=== PATIENT | male | born 1960 | race Caucasian/White ===

== ENCOUNTER 2020-10-06 23:33 | Inpatient (IN) | payer SELFPAY ==
[~2020-10-06] VITALS: Ht 186.7 cm; Wt 99.8 kg
--- NOTE | 2020-10-06 23:45 | NUR ---
PT BIBS WITH C/O NOSEBLEED X2HRS [employer]. PT DENIES TAKING ANY BLOOD THINNERS. PT ALERT AND ORIENTED X4. AMBULATORY WITH NON LABORED BREATHING.
[2020-10-07] VITALS (25 sets, daily range): BP systolic 127–193; BP diastolic 83–124
--- NOTE | 2020-10-07 | NUR ---
BLOOD WORK COLLECTED AND SENT TO LAB.
[2020-10-07] MEDS ORDERED: hydrALAZINE HCL IV 20 MG VIAL ONE ×2 (00:06→01:01)
[2020-10-07 00:09] LABS: BASOPHILS # (AUTO) 0.1 K/uL (0.0-0.2); EOSINOPHILS % (AUTO) 3.1 % (0.0-6.0); HEMATOCRIT 43 % (39-51); HEMOGLOBIN 15.1 g/dL (13.5-17.5); LYMPHOCYTES # (AUTO) 2.4 K/uL (0.8-4.8); MEAN CORPUSCULAR HGB CONC 35 g/dl (31.0-36.0); MEAN CORPUSCULAR VOLUME 99 fL (80-96); MONOCYTES # (AUTO) 0.9 K/uL (0.1-1.30); MONOCYTES % (AUTO) 8.9 % (2.0-12.0); NEUTROPHILS # (AUTO) 6.2 K/uL (1.8-8.9); PLATELET COUNT (AUTO) 325 K/uL (150-450); RED BLOOD CELL COUNT(AUTO) 4.37 MIL/uL (4.5-6.0); WHITE BLOOD COUNT (AUTO) 9.9 K/uL (4.3-11.0)
--- NOTE | 2020-10-07 00:26 | NUR ---
PT TAKEN TO CT.
[2020-10-07 00:34] LABS: ALANINE AMINOTRANSFERASE 38 U/L (12-78); ALBUMIN 3.6 g/dL (3.4-5.0); ALKALINE PHOSPHATASE 45 U/L (46-116); ASPARTATE AMINOTRANSFERASE 31 U/L (15-37); BILIRUBIN,DIRECT 0.1 mg/dL (0.0-0.2); BILIRUBIN,TOTAL 0.5 mg/dL (0.2-1.0); CALCIUM, SERUM 8.8 mg/dL (8.5-10.1); CARBON DIOXIDE 28 mmol/L (21-32); CHLORIDE 102 mmol/L (98-107); CREATININE 0.9 mg/dL (0.6-1.3); GLUCOSE 130 mg/dL (74-106); SODIUM SERUM 141 mmol/L (136-145); TOTAL PROTEIN, SERUM 7.5 g/dL (6.4-8.2); UREA NITROGEN, BLOOD 19 mg/dL (7-18)
--- NOTE | 2020-10-07 00:36 | NUR ---
PT BACK FROM CT.
[2020-10-07 00:51] LABS: POTASSIUM 2.8 mmol/L (3.5-5.1)
[2020-10-07] MEDS ORDERED: hydrALAZINE HCL IV 20 MG VIAL IV ONE ×2 (01:00)
[2020-10-07] MEDS ORDERED: NICARDIPINE HCL 40 MG in IV NS 0.9% 184 ML IV PRN (02:00)
[2020-10-07] MEDS ORDERED: NICARDIPINE IN DEXTROSE,ISO-OS 200 ML IV ONE ×2 (02:02→05:41)
[2020-10-07] MEDS ORDERED: NICARDIPINE IN NACL, ISO-OSM 200 ML IV PRN (02:30)
--- NOTE | 2020-10-07 02:30 | NUR ---
COVID SWAB DONE AND SENT TO LAB.
--- NOTE | 2020-10-07 02:47 | NUR ---
2ND LINE ESTABLISHED @ R AC 20G
--- NOTE | 2020-10-07 02:53 | NUR ---
BED 257
--- NOTE | 2020-10-07 03:29 | NUR ---
REPORT GIVEN TO FILM PRINTER WILLOW.
--- NOTE | 2020-10-07 03:35 | NUR ---
DR. MONZON PAGED PER ER ORDER.
[2020-10-07] MEDS ORDERED: ONDANSETRON HCL/PF 4 MG/2 ML VIAL ONE (04:18)
[2020-10-07] MEDS ORDERED: POTASSIUM CHLORIDE 20 MEQ TAB.PRT.SR PO ONE ×3 (04:20→08:30)
--- NOTE | 2020-10-07 04:21 | NUR ---
er md spoke to dr. lee regarding pt admission.
[2020-10-07] MEDS ORDERED: POTASSIUM CHLORIDE 20 MEQ TAB.PRT.SR PO SCH (04:30)
[2020-10-07] MEDS ORDERED: ONDANSETRON HCL/PF 4 MG/2 ML VIAL IV PRN (04:30)
[2020-10-07] MEDS ORDERED: MAGNESIUM HYDROXIDE 30 ML UDC PO PRN (05:00)
[2020-10-07] MEDS ORDERED: ONDANSETRON HCL/PF 4 MG/2 ML VIAL IVP PRN (05:00)
[2020-10-07] MEDS ORDERED: Z GUARD REMEDY 2 OZ OINT TP PRN (05:00)
[2020-10-07] MEDS ORDERED: MAG HYDROX/AL HYDROX/SIMETH 30 ML UDC PO PRN (05:00)
[2020-10-07] MEDS ORDERED: ZOLPIDEM TARTRATE 5 MG TABLET PO PRN (05:00)
[2020-10-07] MEDS ORDERED: ACETAMINOPHEN 325 MG TABLET PO PRN (05:00)
--- NOTE | 2020-10-07 05:09 | NUR ---
PT TRANSFERRED TO 257
--- NOTE | 2020-10-07 05:10 | NUR ---
RECEIVED PT FROM ER VIA [facility] ON ROOM AIR SPO2 97% NO SIGN OF RESPIRATORY DISTRESS, ABLE TO WALK FROM [facility] TO BED, HOOKED TO MONITOR SINUS TACHY 110'S, DRY BLOOD ON NOSTRILS NOTED ALSO SOME ON THE TISSUE, HEAD TO TOE ASSESSMENT DONE, ADMISSION ASSESSMENT DONE V/S CHECKED AND RECORDED, HAVE LAC#20 PATENT AND FLUSHED WITH ONGOING CARDENE @ 5MG/HR WILL TITRATE PER PROTOCOL BED ON LOWEST POSITION AND LOCKED SIDE RAILS UP X2 CALL LIGHT WITHIN REACH WILL CONT TO MONITOR
[2020-10-07 05:22] LABS: BASOPHILS # (AUTO) 0.1 K/uL (0.0-0.2); BASOPHILS % (AUTO) 0.6 % (0.0-2.0); EOSINOPHILS % (AUTO) 1.3 % (0.0-6.0); HEMATOCRIT 41 % (39-51); HEMOGLOBIN 14.5 g/dL (13.5-17.5); LYMPHOCYTES # (AUTO) 1.8 K/uL (0.8-4.8); LYMPHOCYTES % (AUTO) 18.3 % (20.0-44.0); MEAN CORPUSCULAR HGB CONC 35 g/dl (31.0-36.0); MEAN CORPUSCULAR VOLUME 98 fL (80-96); MONOCYTES # (AUTO) 0.9 K/uL (0.1-1.30); MONOCYTES % (AUTO) 9.3 % (2.0-12.0); NEUTROPHILS # (AUTO) 7.1 K/uL (1.8-8.9); NEUTROPHILS % (AUTO) 70.5 % (43.0-81.0); PLATELET COUNT (AUTO) 302 K/uL (150-450); RED BLOOD CELL COUNT(AUTO) 4.18 MIL/uL (4.5-6.0); WHITE BLOOD COUNT (AUTO) 10.1 K/uL (4.3-11.0)
[2020-10-07 05:32] LABS: CALCIUM, SERUM 8.2 mg/dL (8.5-10.1); CREATININE 1.1 mg/dL (0.6-1.3); MAGNESIUM 2.2 mg/dL (1.8-2.4); PHOSPHORUS 2.8 mg/dL (2.5-4.9); POTASSIUM 3.1 mmol/L (3.5-5.1)
[2020-10-07] MEDS: NICARDIPINE IN NACL, ISO-OSM 200 ML IV PRN ×3 (05:47→08:43)
--- NOTE | 2020-10-07 07:05 | NUR ---
RN NOTES RECEIVED PT ON BED , A/Ox4, ON RA , O2 SAT WNL, ON TELE ST HR IN 100'S, CARDENE DRIP AT 7.5 MG/HR RUNNING FOR HYPERTENSION , SR UP x3, CALL LIGHT WITHIN EASY REACH, BED LOCKED AND IN LOWEST POSITION , CONTINUE TO MONITOR .
[2020-10-07 08:48] LABS: CALCIUM, SERUM 7.9 mg/dL (8.5-10.1); POTASSIUM 3.1 mmol/L (3.5-5.1)
[2020-10-07] MEDS ORDERED: hydrALAZINE HCL IV 20 MG VIAL IV PRN (09:00)
[2020-10-07] MEDS ORDERED: NIFEdipine XL (30MG) 30 MG TAB PO SCH (09:00)
[2020-10-07] MEDS ORDERED: LABETALOL HCL IV 100MG VIAL IV ONE (09:30)
--- NOTE | 2020-10-07 09:30 | NUR ---
JELENA NOTES SBP IS IN 190'S AND 180'S, DR ORTEZ NOTIFIED, NEW ORDER RECEIVED, CONTINUE TO MONITOR . Addendum: 10/07/20 at 1041 by PAT FIGUEROA RN CORRECTION PLEASE DISREGARD ABOVE CHARTING , CHARTED ON A WRONG PT
--- NOTE | 2020-10-07 11:56 | NUR ---
RN NOTES PT TRANSFERRED TO ROOM 101, TELE STATUS , VIA ACLS PROTOCOL IN STABLE CONDITION, WITH ALL HIS BELONGINGS. REPORT GIVEN TO [place] FOR CONTINUITY OF CARE .
--- NOTE | 2020-10-07 12:40 | NUR ---
RN NOTE PT LEFT AMA. PT STATED HE DID NOT WANT TO STAY DUE TO PCR TIME LENGTH FOR RESULTS. PT AGREED TO SIGN AMA FORM, SIGNED AND DATED @4547. AMA FORM IN PTS FOLDER.
[2020-10-07] MEDS ORDERED: NIFE-35 PO (13:04)
== END 2020-10-07 12:40 | disposition left against medical advice (07) | DRG 305 ==
LOC: ER 23:36 → ICU 10-07 03:09 → TELE1 10-07 11:40
PROVIDERS: ADMIT Internal Medicine; ATTEND Internal Medicine
DX: I16.1 Hypertensive emergency (principal); R04.0 Epistaxis; Z20.822 Contact with and (suspected) exposure to COVID-19; R51.9 Headache, unspecified
CPT/HCPCS: 36415; 70450-TC; 80048-TC; 80061-TC; 80076-TC; 83735-TC; 84100-TC; 84484-TC; 85025-TC; 85730-TC; 87081-TC; G0378; J0360; J2405; U0003